=== PATIENT | female | born 1990 | race Caucasian/White ===

== ENCOUNTER 2018-03-21 12:54 | Emergency (ER) | payer OTHER | END 2018-03-21 13:43 | disposition home or self-care (01) | LOC: ER 12:54 | DX: N61.0 Mastitis without abscess (principal); Z88.1 Allergy status to other antibiotic agents; Z88.2 Allergy status to sulfonamides | CPT/HCPCS: 99283 ==

== ENCOUNTER 2019-07-20 15:50 | Emergency (ER) | payer MEDICAID, OTHER ==
[~2019-07-20] VITALS: Ht 157.5 cm; Wt 65.8 kg
[~2019-07-20 15:50] MED LIST: AMOX1TAB61 PO
[2019-07-20 16:00] VITALS: BP 112/70
[2019-07-20] MEDS ORDERED: GABA600T7 PO (16:18)
[2019-07-20] MEDS ORDERED: HYDR25TA PO (16:18)
[2019-07-20] MEDS ORDERED: TRAM50TA PO (16:18)
[2019-07-20] MEDS ORDERED: ACYC800T PO (16:18)
[2019-07-20] MEDS ORDERED: PRED50TA PO (16:18)
--- NOTE | 2019-07-20 16:18 | PHYS DOC ---
Past Medical History Past Medical History: No Pertinent History (AMRY HIDALGO APRN) Past Surgical History: Tonsillectomy (MARY HIDALGO APRN) Alcohol Use: None Drug Use: None (MARY HIDALGO APRN) Attending Signature I have participated in the care of this patient and I have reviewed and agree with all pertinent clinical information above including history, exam, and recommendations. (INES ARAGON MD) Adult General Chief Complaint Chief Complaint: SKIN RASH/ABSCESS HPI HPI Patient is a 28 year old female with no significant medical history who presents to the ED today complaining of a blistery rash on her back that began 3 days ago. Patient denies any fever. (MARY HIDALGO APRN) Review of Systems Review of Systems Constitutional: Denies fever or chills [] Musculoskeletal: Denies back pain or joint pain [] Integument: Reports blistery rash on the back Neurologic: Denies headache, focal weakness or sensory changes [] All other systems were reviewed and found to be within normal limits, except as documented in this note. (MARY HIDALGO APRN) Allergies Allergies Allergies Coded Allergies Type Severity Reaction Last Updated Verified Sulfa (Sulfonamide Antibiotics) Allergy Intermediate rash 03/21/18 Yes cephalexin Allergy Intermediate rash 03/21/18 Yes (INES ARAGON MD) Physical Exam Physical Exam Constitutional: Well developed, well nourished, no acute distress, non-toxic a ppearance. [] Skin: Warm, dry, right flank region with a blistery rash consistent with shingles Back: No tenderness, no CVA tenderness. [] Extremities: No tenderness, no cyanosis, no clubbing, ROM intact, no edema. [] Neurologic: Alert and oriented X 3, normal motor function, normal sensory functi on, no focal deficits noted. [] Psychologic: Affect normal, judgement normal, mood normal. [] (MARY HIDALGO APRN) Current Patient Data Vital Signs Vital Signs Date Time Temp Pulse Resp B/P (MAP) Pulse Ox O2 Delivery O2 Flow Rate FiO2 07/20/19 16:00 97.4 64 14 112/70 (84) 98 Room Air 97.4 (INES ARAGON MD) EKG EKG [] (MARY HIDALGO APRN) Radiology/Procedures Radiology/Procedures [] (MARY HIDALGO APRN) Course & Med Decision Making Course & Med Decision Making Pertinent Labs and Imaging studies reviewed. (See chart for details) This is a 28-year-old female patient presenting to the ED today with shingles. Was discharged with acyclovir, tramadol, gabapentin and prednisone. Follow-up with PCP in 1-2 weeks. (MARY HIDALGO APRN) Dragon Disclaimer Dragon Disclaimer This electronic medical record was generated, in whole or in part, using a voice recognition dictation system. (MARY HIDALGO APRN) Departure Departure Impression: Primary Impression: Shingles Disposition: HOME, SELF-CARE Condition: STABLE Referrals: UNKNOWN PCP NAME (PCP) follow up with your doctor in 1-2 weeks as needed Patient Instructions: Shingles, Naxg-op-Oosl Additional Instructions: You have shingles. This is a contagious rash. Avoid exposing this rash to children, elderly and people. Maintain good hand hygiene. Take the prescribed medications as ordered. Follow-up with your doctor in 1-2 weeks. Scripts Hydroxyzine Hcl (HYDROXYZINE HCL) 25 Mg Tablet 1 TAB PO TID, #30 TAB Prov: MARY HIDALGO APRN 07/20/19 Tramadol Hcl (TRAMADOL HCL) 50 Mg Tablet 50 MG PO Q6HRS PRN for PAIN, #30 TAB Prov: MARY HIDALGO APRN 07/20/19 Gabapentin (GABAPENTIN) 600 Mg Tablet 600 MG PO TID for NEUROGENIC PAIN, #30 TAB Prov: MARY HIDALGO APRN 07/20/19 Prednisone (PREDNISONE) 50 Mg Tablet 1 TAB PO DAILY, #5 TAB Prov: MARY HIDALGO APRN 07/20/19 Acyclovir (ACYCLOVIR) 800 Mg Tablet 1 TAB PO 5XDAY, #50 TAB Prov: MARY HIDALGO APRN 07/20/19 Problem Qualifiers Primary Impression: Shingles Herpes zoster complications: without complications Qualified Codes: B02.9 - Zoster without complications MARY HIDALGO APRN Jul 20, 2019 16:18 INES ARAGON MD Jul 21, 2019 06:19
== END 2019-07-20 16:25 | disposition home or self-care (01) ==
LOC: ER 15:50
DX: B02.9 Zoster without complications (principal); Z90.89 Acquired absence of other organs; Z88.2 Allergy status to sulfonamides; Z88.1 Allergy status to other antibiotic agents
CPT/HCPCS: 99283

== ENCOUNTER → 2020-08-27 | Outpatient (CLI) | payer MEDICAID ==
[~2020-08-27] MED LIST changes: +ACYC800T PO; +GABA600T7 PO; +HYDR25TA PO; +PRED50TA PO; +TRAM50TA PO
--- NOTE | 2020-08-27 16:07 | RAD ---
EXAM: Obstetric sonogram. HISTORY: anatomy survey. TECHNIQUE: Sonographic imaging of a gravid uterus was performed. COMPARISON: None. FINDINGS: There is a single intrauterine fetus in breech presentation with a normal heart rate of 136 bpm. There is normal body motion. There is a four-chamber heart. The stomach, kidneys, bladder, spine, facial profile, and extremities are unremarkable. There is a three-vessel umbilical cord with normal insertion. There is a grade 0 placenta posterior placenta. The cervix is closed and measures 2.9 cm in length. The amniotic fluid index is low normal at 17.0 cm. The biparietal diameter is 4.4 cm, corresponding with 19 weeks and 2 days. The head circumference is 18.05 cm, corresponding with 20 weeks and 3 days. The abdominal circumference is 15.65 cm, corresponding 20 weeks and 6 days. The femoral length is 3.22 cm, corresponding with 20 weeks and 0 days. The estimated gestational age patient combined ultrasound measurements is 20 weeks and 1 day and the estimated weight is 352 g. IMPRESSION: 1. Single intrauterine fetus with normal heart rate and gestational age based on ultrasound measurements of 20 weeks and 1 day. 2. Low normal OPAL of 7.0 cm. Electronically signed by: Annette Aguiar MD (08/27/2020 4:04 PM) [facility]
== END ==
LOC: US 08:47
PROVIDERS: ATTEND Obstetrics & Gynecology
DX: O26.842 Uterine size-date discrepancy, second trimester (principal); Z3A.20 20 weeks gestation of pregnancy
CPT/HCPCS: 76805

== ENCOUNTER 2020-10-25 18:30 | Observation (INO) | payer MEDICAID ==
[~2020-10-25 18:30] MED LIST changes: -ACYC800T PO; +ACYC800T88 PO
[2020-10-25] MEDS ORDERED: IV RINGERS,LACTATED 1000ML 1,000 ML IV PRN (18:45)
[2020-10-25 19:37] LABS: BILIRUBIN,URINE NEGATIVE (NEG); CLARITY,URINE CLEAR; COLOR,URINE YELLOW; NITRITE,URINE NEGATIVE (NEG); PROTEIN,URINE NEGATIVE (NEG-TRACE); UROBILINOGEN,URINE 0.2 mg/dL (0.2 mg/dL)
[2020-10-25 19:46] LABS: BACTERIA,URINE FEW /HPF (0-FEW); RBC,URINE 0 /HPF (0-2)
== END 2020-10-25 20:30 | disposition home or self-care (01) ==
LOC: 3 SO LND 18:30
PROVIDERS: ADMIT Obstetrics & Gynecology; ATTEND Obstetrics & Gynecology
DX: O26.893 Other specified pregnancy related conditions, third trimester (principal); R10.30 Lower abdominal pain, unspecified; O36.8130 Decreased fetal movements, third trimester, not applicable or unspecified; Z3A.28 28 weeks gestation of pregnancy
CPT/HCPCS: 59025; 81001; 87086; G0378; G0379

== ENCOUNTER 2021-10-29 20:03 | Emergency (ER) | payer MEDICAID ==
[~2021-10-29] VITALS: Ht 157.5 cm; Wt 79.5 kg
--- NOTE | 2021-10-29 21:41 | RAD ---
Exam: Sacrum and coccyx 2 views INDICATION: Fall with tailbone pain TECHNIQUE: Frontal and lateral views of the sacrum Comparisons: None FINDINGS: Mild osteopenia. Mild cortical step-off noted at the mid/lower sacrum. Soft tissues are unremarkable. Joint spaces are well-maintained. IMPRESSION: Question mildly displaced fracture at the lower sacrum. Correlate with point tenderness. Electronically signed by: Sangeetha Lyon MD (10/29/2021 9:38 PM) [facility]
[2021-10-29] MEDS ORDERED: IBUPROFEN 400 MG TABLET. PO ONE (21:45)
[2021-10-29] MEDS ORDERED: HYDR-2761 PO (21:57)
--- NOTE | 2021-10-29 21:58 | PHYS DOC ---
Past Medical History Past Medical History: Other Additional Past Medical Histor: SHINGLES (ILSA DE SANTIAGO APRN) Past Surgical History: Tonsillectomy (ILSA DE SANTIAGO APRN) Smoking Status: Never Smoker Alcohol Use: None Drug Use: None (ILSA DE SANTIAGO APRN) General Adult EDM: Chief Complaint: MECHANICAL FALL HPI: HPI: Patient is a 31-year-old female that presents today with tailbone pain. Patient states around 1230 today she was walking with her child from the car to inside and she said she slipped and fell and fell backwards she was clutching onto her child so she could not break her fall and she landed directly on her tailbone. She said that when she standing or lying on her side her tailbone does not hurt but if she lies on her back or tries to sit it hurts a lot. She states that she has no loss of bowel or bladder control, she has no numbness or tingling in her legs or in her groin area. (ILSA DE SANTIAGO APRN) Review of Systems: Review of Systems: Constitutional: Denies fever or chills. [] Eyes: Denies change in visual acuity. [] HENT: Denies nasal congestion or sore throat. [] Respiratory: Denies cough or shortness of breath. [] Cardiovascular: Denies chest pain or edema. [] GI: Denies abdominal pain, nausea, vomiting, bloody stools or diarrhea. [] : Denies dysuria. [] Musculoskeletal: Tailbone pain denies back pain or joint pain. [] Integument: Denies rash. [] Neurologic: Denies headache, focal weakness or sensory changes. [] Endocrine: Denies polyuria or polydipsia. [] Lymphatic: Denies swollen glands. [] Psychiatric: Denies depression or anxiety. [] (ILSA DE SANTIAGO APRN) Heart Score: C/O Chest Pain: N/A Risk Factors: Risk Factors: DM, Current or recent (<one month) smoker, HTN, HLP, family history of CAD, obesity. Risk Scores: Score 0 - 3: 2.5% MACE over next 6 weeks - Discharge Home Score 4 - 6: 20.3% MACE over next 6 weeks - Admit for Clinical Observation Score 7 - 10: 72.7% MACE over next 6 weeks - Early Invasive Strategies (ILSA DE SANTIAGO APRN) Current Medications: Current Medications Medications (Trade) Dose Ordered Sig/Jodi Start Time Stop Time Status Last Admin Dose Admin Ibuprofen (Motrin) 800 mg 1X ONCE 10/29/21 21:45 10/29/21 21:46 DC (ILSA DE SANTIAGO APRN) Allergies: Allergies: Allergies Coded Allergies Type Severity Reaction Last Updated Verified Sulfa (Sulfonamide Antibiotics) Allergy Intermediate rash 11/28/20 Yes cephalexin Allergy Intermediate rash 11/28/20 Yes (ILSA DE SANTIAGO APRN) Physical Exam: PE: Constitutional: Well developed, well nourished, no acute distress, non-toxic appearance. [] HENT: Normocephalic, atraumatic, bilateral external ears normal, oropharynx moist, no oral exudates, nose normal. [] Eyes: PERRLA, EOMI, conjunctiva normal, no discharge. [] Neck: Normal range of motion, no tenderness, supple, no stridor. [] Cardiovascular:Heart rate regular rhythm, no murmur [] Lungs & Thorax: Bilateral breath sounds clear to auscultation [] Abdomen: Bowel sounds normal, soft, no tenderness, no masses, no pulsatile masses. [] Skin: Warm, dry, no erythema, no rash. [] Back: No tenderness, no CVA tenderness. [] Extremities: Tenderness noted over the sacral area, no bruising or ecchymosis noted. Normal range of motion of the legs noted. ] Neurologic: Alert and oriented X 3, normal motor function, normal sensory function, no focal deficits noted. [] Psychologic: Affect normal, judgement normal, mood normal. [] (ILSA DE SANTIAGO APRN) Current Patient Data: Labs: Laboratory Tests Test 10/29/21 21:08 POC Urine HCG, Qualitative Hcg negative (Negative) Vital Signs: Vital Signs Date Time Temp Pulse Resp B/P (MAP) Pulse Ox O2 Delivery O2 Flow Rate FiO2 10/29/21 20:28 98.6 127 18 127/72 (90) 97 Room Air 98.6 (ILSA DE SANTIAGO APRN) EKG: EKG: [] (DERKSILSA DAVISON APRN) Radiology/Procedures: Radiology/Procedures: [REASON: fall with tailbone pain PROCEDURE: SACRUM & COCCYX 3V Exam: Sacrum and coccyx 2 views INDICATION: Fall with tailbone pain TECHNIQUE: Frontal and lateral views of the sacrum Comparisons: None FINDINGS: Mild osteopenia. Mild cortical step-off noted at the mid/lower sacrum. Soft tissues are unremarkable. Joint spaces are well-maintained. IMPRESSION: Question mildly displaced fracture at the lower sacrum. Correlate with point tenderness. Electronically signed by: Sangeetha Lyon MD (10/29/2021 9:38 PM) [facility] (ILSA DE SANTIAGO APRN) Course & Med Decision Making: Course & Med Decision Making Pertinent Labs and Imaging studies reviewed. (See chart for details) 2149 reviewed radiological results with patient did inform her she had a sacral fracture, she will need to sit up with a donut to help with pain control when sitting, also Motrin as labeled directed for pain as well. Patient is requesting opioid pain control over the next couple of days, I did inform her that using op iates can cause constipation and to use stool softener to help prevent constipation. Patient verbalizes understanding of this and agreeable to the plan of care. (ILSA DE SANTIAGO APRN) Course & Med Decision Making I was the Attending physician on the above date of service of this patient. This patient was evaluated, examined, treated, and dispositioned from the emergency department by the mid-level practitioner. Although I was working at the time , no assistance was requested. Electronically signed, Sancho Kramer DO (SANCHO KRAMER DO) Nelida Disclaimer: Nelida Disclaimer: This electronic medical record was generated, in whole or in part, using a voice recognition dictation system. (ILSA DE SANTIAGO APRN) Departure Departure Impression: Primary Impression: Sacral fracture Qualified Codes: S32.10XA - Unspecified fracture of sacrum, initial encounter for closed fracture Disposition: HOME / SELF CARE / HOMELESS Condition: STABLE Referrals: NO PCP (PCP) RUPERTO LLANES II, MD Patient Instructions: Tailbone Injury Additional Instructions: Donut cushion to help with relief of pain control when sitting Hydrocodone take 1 tablet every 6 hours as needed for severe pain, use with caution may cause drowsiness, use with caution may cause constipation [id number] Motrin as labeled directed. Follow-up with your primary care physician, one of the clinics listed below, or Dr. Llanes for any concerns you may have in regards to this fracture Return to the emergency department if you should have a loss of bowel or bladder control, unable to start your stream or defecate, or have any numbness or tingling in your legs. Scripts Hydrocodone Bit/Acetaminophen (HYDROCODONE-APAP 5-325 ) 1 Tab Tablet 1 TAB PO PRN Q6HRS PRN for PAIN, #10 TAB 0 Refills Prov: ILSA DE SANTIAGO APRN 10/29/21 ILSA DE SANTIAGO APRN Oct 29, 2021 21:58 SANCHO KRAMER DO Nov 03, 2021 07:32
[2021-10-29 22:22] VITALS: BP 122/76
== END 2021-10-29 22:20 | disposition home or self-care (01) ==
LOC: ER 20:03
DX: M53.3 Sacrococcygeal disorders, not elsewhere classified (principal); G89.11 Acute pain due to trauma; W01.0XXA Fall on same level from slipping, tripping and stumbling without subsequent striking against object, initial encounter; Y93.01 Activity, walking, marching and hiking; Y92.89 Other specified places as the place of occurrence of the external cause; Y99.8 Other external cause status
CPT/HCPCS: 72220; 81025; 99283

== ENCOUNTER 2022-01-19 08:25 | Day surgery (SDC) | payer MEDICAID ==
[~2022-01-19] VITALS: Ht 157.5 cm; Wt 93.6 kg
[~2022-01-19 08:25] MED LIST changes: +AZTREONAM IV Push 1 GM VIAL. IVP PRN; +CLINDAMYCIN 900MG PREMIX 50 ML IV PRN; +HYDR-2761 PO; +HYDROmorphone 2 MG/ML INJ. IVP PRN; +IV RINGERS,LACTATED 1000ML 1,000 ML IV SCH; +MORPHINE SULFATE 2 MG/ML INJ. IVP PRN; +PROCHLORPERAZINE 10 MG/2 ML VIAL. IVP PRN; +fentaNYL PF VIAL 100 MCG/2 ML VIAL IVP PRN
[2022-01-19 08:55] VITALS: BP 121/78
[2022-01-19] MEDS ORDERED: DEXAMETHASONE SOD PHOS 4 MG/ML VIAL ONE (09:20)
[2022-01-19] MEDS ORDERED: LIDOCAINE 2% PF 5 ML VIAL. ONE (09:20)
[2022-01-19] MEDS ORDERED: KETOROLAC 30 MG/ML VIAL. ONE (09:20)
[2022-01-19] MEDS ORDERED: PROPOFOL 10 MG/ML (20ML) VIAL. IV ONE (09:20)
[2022-01-19] MEDS ORDERED: ONDANSETRON PF 4 MG/2 ML VIAL. ONE (09:20)
[2022-01-19] MEDS ORDERED: FERRIC SUBSULFATE 8 ML SOL.W.APPL TP ONE (09:41)
[2022-01-19] MEDS ORDERED: LIDOCAINE 1%/EPI 1:100,000 20 ML VIAL. ONE (09:41)
[2022-01-19] MEDS ORDERED: MIDAZOLAM HCL/PF 2 MG/2 ML VIAL. ONE (09:48)
--- NOTE | 2022-01-19 10:29 | PDOC4 ---
BRIEF OPERATIVE NOTE Date: Jan 19, 2022 Pre-Op Diagnosis AVRIL 2 Post-Op Diagnosis Same Procedure Performed Cold Knife Cone Cervical Biopsy Surgeon Dr. Dye Anesthesia Type: General Blood Loss 5 ml Specimens Obtained cervical cone biopsy Findings cervical dysplasia Complications none Operative Note see dictation MELISSA DYE Jr., MD Jan 19, 2022 10:29
[2022-01-19] MEDS ORDERED: OXYC1TAB15 PO (10:30)
--- NOTE | 2022-01-19 10:32 | DISCH ---
DISCHARGE INSTRUCTIONS Condition on Discharge Condition on Discharge: Stable Activity After Discharge Activity Instructions for Disc: Activity as tolerated Bathing Instructions: No Tub Bath until see Lifting Instructions after Dis: No heavy lifting, No pulling or pushing Driving Instructions after Dis: Do not drive today Diet after Discharge Diet after Discharge: Regular Contacting the after DC Call your doctor for: Concerns you may have Follow-Up Follow up with: Dr. Dye in 2 wks MELISSA DYE Jr., MD Jan 19, 2022 10:32
[2022-01-19] MEDS ORDERED: oxyCODONE/APAP 5/325 1 TAB TABLET PO ONE (11:00)
[2022-01-19 11:05] VITALS: BP 120/69
--- NOTE | 2022-01-19 11:13 | OP ---
DATE OF SURGERY: 01/19/2022 PREOPERATIVE DIAGNOSIS: Cervical intraepithelial neoplasia 2. POSTOPERATIVE DIAGNOSIS: Cervical intraepithelial neoplasia 2. PROCEDURE: Cold knife cone cervical biopsy. SURGEON: Obinna Dye MD. ANESTHESIA: LMA. ESTIMATED BLOOD LOSS: 5 mL. COMPLICATIONS: None. FINDINGS: Cervical dysplasia. SUMMARY: A 31-year-old female with AVRIL-2 on colposcopic biopsy, requiring cervical cone biopsy. She was counseled on the risks, benefits and expectations and voiced clear understanding to proceed. DESCRIPTION OF PROCEDURE: The patient was taken to surgery suite and placed in dorsal lithotomy position, was prepped with Betadine solution and draped in a sterile fashion. After adequate anesthesia, weighted speculum and right angle were placed vaginally. Anterior lip of the cervix grasped with single tooth tenaculum. Cervix was injected with 1% lidocaine with epinephrine in a circumferential manner. A 2-0 Vicryl suture was placed at 3 o'clock and 9 o'clock position for stabilization of the cervix, 45-degree angle scapula was performed to remove a portion of the anterior and posterior lip of the cervix. The remaining cervix was cauterized with Bovie cautery. Monsel solution was placed for better hemostasis. The single-tooth tenaculum, right angle and weighted speculum were removed. The patient tolerated the procedure well and was taken to recovery room in stable condition. Sponge and needle count correct x 3. ALAYNA/MELANIE DR: Fara TID: [id number]
--- NOTE | 2022-01-26 18:07 | PATHOLOGY ---
[facility] Accession Number: [id number] . 01 Material submitted: . cervix - CERVICAL CONE BIOPSY . 01 Clinical history: . MODERATE DYSPLASIA OF CERVIX COLD KNIFE CERVICAL CONE BX SUTURES PLACED AT 3 O'CLOCK AND 9 O'CLOCK TO STABILIZE . 02 Diagnosis: Uterine cervix, cervical cone biopsy: - Moderate dysplasia (AVRIL II), focal. - Exocervical, endocervical, and deep margins negative for dysplasia. - Active chronic cervicitis with squamous metaplasia. - Nabothian cysts, small. (JPM:debbie; 01/26/2022) S 01/26/2022 1719 Local . 02 Electronically signed: . Jak Mercado MD, Pathologist NPI- [id number] . 01 Gross description: . The specimen is received in formalin, labeled "[place], cervical cone biopsy". Received is an intact oriented LEEP specimen measuring 2.2 x 1.5 x 1.3 cm in greatest dimensions with a suture placed at one aspect, which will arbitrarily be designated as the 12:00 margin. The 1.4 cm cervical os is surrounded by pale york, smooth ectocervical mucosa. The endocervical margin is inked blue and the remaining margin is inked black. The specimen is radially sectioned and entirely submitted as follows: . A1 12:00 to 3:00 margin A2 3:00 to 6:00 margin A3 6:00 to 9:00 margin A4 9:00 to 12:00 margin. (CAA; 01/22/2022) QAC/QAC 01/22/2022 1132 Local . 02 Pathologist provided ICD-10: N87.1, N72, N88.8 . 02 CPT . 968890 Specimen Comment: A courtesy copy of this report has been sent to [phone] Specimen Comment: Report sent to Performed at: [address] [facility] [address], [place] [id number] MD Yair Starks MD Phone: [phone] Performed at: 02 [facility] [address] [place], [place] [id number] MD Jak Mercado MD Phone: [phone]
== END 2022-01-19 11:53 | disposition home or self-care (01) ==
LOC: SURG 08:25
PROVIDERS: ATTEND Obstetrics & Gynecology
DX: N87.1 Moderate cervical dysplasia (principal); Z79.899 Other long term (current) drug therapy; Z98.890 Other specified postprocedural states; Z88.2 Allergy status to sulfonamides; Z88.1 Allergy status to other antibiotic agents
CPT/HCPCS: 57520; 81025; A4930; A6257; J1100; J1885; J2250; J2405; J2704; J3490